=== PATIENT | female | born 1995 | race American Indian/Alaskan Native ===

== ENCOUNTER 2019-03-12 19:10 | Outpatient (CLI) | payer OTHER, MEDICAID ==
[2019-03-12] MEDS ORDERED: LACTATED RINGERS 1,000 ML IV ONE (21:42)
[2019-03-12 22:09] LABS: Bilirubin,Urine NEG (Negative); Blood,Urine NEG (Negative); Color,Urine Straw (Yellow); Mucus,Urine FEW /HPF; Protein,Urine <15 mg/dL mg/dL (Negative); Urobilinogen,Urine < 2.0 mg/dL (<2.0)
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
[2019-03-13 00:11] VITALS: BP 123/59
== END 2019-03-13 00:30 | disposition home or self-care (01) ==
LOC: EDSTATUS 20:41 → TRG 20:44 → LD 21:02 → TRG 03-13 00:30
PROVIDERS: ATTEND Obstetrics & Gynecology
DX: O26.893 Other specified pregnancy related conditions, third trimester (principal); Z3A.35 35 weeks gestation of pregnancy; M25.612 Stiffness of left shoulder, not elsewhere classified; M79.604 Pain in right leg; V79.9XXA Bus occupant (driver) (passenger) injured in unspecified traffic accident, initial encounter; Y93.89 Activity, other specified; Y99.8 Other external cause status; Y92.410 Unspecified street and highway as the place of occurrence of the external cause
CPT/HCPCS: 59025; 76816; 76819; 81001